=== PATIENT | male | born 1960 | race Caucasian/White ===

== ENCOUNTER 2023-05-29 12:52 | Emergency (ER) | payer BC, OTHER ==
[~2023-05-29] VITALS: Ht 170.2 cm; Wt 72.6 kg
[2023-05-29 13:48] VITALS: BP 153/86; O2SAT 100
== END 2023-05-29 13:48 | disposition left against medical advice (07) ==
LOC: ER 12:52
DX: R07.89 Other chest pain (principal); Z88.0 Allergy status to penicillin
CPT/HCPCS: 71045; 93005; A4606; A4663